=== PATIENT | male | born 1950 | race Caucasian/White ===

== ENCOUNTER → 2016-06-18 | Outpatient (CLI) | payer MEDICARE, OTHER ==
[2016-06-18 10:41] LABS: HEMOGLOBIN 14.2 gm/dl (14.0-17.5); RED BLOOD COUNT 4.78 M/UL (4.20-5.50); WHITE BLOOD COUNT 6.3 K/UL (4.5-11.0)
[2016-06-18 11:00] LABS: BUN/CREATININE RATIO 16 (0-10)
== END ==
LOC: LAB 09:32
PROVIDERS: Family Medicine
DX: Z12.5 Encounter for screening for malignant neoplasm of prostate (principal); E78.5 Hyperlipidemia, unspecified; H61.21 Impacted cerumen, right ear; I10 Essential (primary) hypertension; R73.01 Impaired fasting glucose
CPT/HCPCS: 36415; 80048; 80061; 80076; 83036; 84443; 85025; G0103

== ENCOUNTER → 2020-06-24 | Outpatient (CLI) | payer MEDICARE, OTHER ==
[~2020-06-24] MED LIST: ASPIR 8181 MG PO; BACTRIM DS TAB1 EACH PO; COZAAR 50MG TAB50 MG PO; DOCUSATE SODIU100 MG PO; GLUCOPHAGE XR500 M1 PO; HYDROCHLOROTH12.5 MG PO; POTASSIUM CHLO20 ME2 PO; TENORMIN 25 MG25 MG PO; THEOPHYLLINE400 MG PO; ZOCOR 40 MG TAB40 MG PO
[2020-06-24 09:33] LABS: HEMOGLOBIN 14.3 gm/dl (14.0-17.5); RED BLOOD COUNT 4.76 M/UL (4.20-5.50); WHITE BLOOD COUNT 5.3 K/UL (4.5-11.0)
[2020-06-24 09:54] LABS: BUN/CREATININE RATIO 17 (0-10)
== END ==
LOC: LAB 08:22
PROVIDERS: Family Medicine
DX: E11.9 Type 2 diabetes mellitus without complications (principal); E78.5 Hyperlipidemia, unspecified; I10 Essential (primary) hypertension
CPT/HCPCS: 36415; 80053; 80061; 83036; 85027

== ENCOUNTER → 2020-12-20 | Outpatient (CLI) | payer MEDICARE, OTHER ==
[2020-12-20 09:34] LABS: HEMOGLOBIN 14.7 gm/dl (14.0-17.5); WHITE BLOOD COUNT 6.6 K/UL (4.5-11.0)
[2020-12-20 10:49] LABS: BUN/CREATININE RATIO 13 (0-10)
== END ==
LOC: LAB 08:45
PROVIDERS: Family Medicine
DX: E11.9 Type 2 diabetes mellitus without complications (principal); E78.5 Hyperlipidemia, unspecified; I10 Essential (primary) hypertension; N40.0 Benign prostatic hyperplasia without lower urinary tract symptoms
CPT/HCPCS: 36415; 80053; 80061; 83036; 84153; 85027

== ENCOUNTER → 2021-06-26 | Outpatient (CLI) | payer MEDICARE, OTHER ==
[2021-06-26 09:19] LABS: HEMOGLOBIN 15.4 gm/dl (14.0-17.5); RED BLOOD COUNT 5.11 M/UL (4.20-5.50)
[2021-06-26 10:16] LABS: BUN/CREATININE RATIO 14 (0-10)
== END ==
LOC: LAB 08:53
PROVIDERS: Family Medicine
DX: E11.9 Type 2 diabetes mellitus without complications (principal); E78.5 Hyperlipidemia, unspecified; I10 Essential (primary) hypertension
CPT/HCPCS: 36415; 80053; 80061; 83036; 84153; 85027